=== PATIENT | male | born 1965 | race Caucasian/White ===

== ENCOUNTER 2017-11-13 06:56 | Day surgery (SDC) | payer BC ==
[2017-11-13] MEDS ORDERED: Sodium Chloride 0.9% 10 ML Syringe FLUSH PRN (08:30)
[2017-11-13] MEDS ORDERED: Lactated Ringers 1,000 ML IV SCH (08:30)
[2017-11-13] MEDS ORDERED: Propofol 200 MG/20 ML SDV IV ONE (08:45)
[2017-11-13] MEDS ORDERED: Midazolam 1 MG/ML 2 ML SDV IV ONE (08:45)
--- NOTE | 2017-11-13 09:21 | PCM.OPNOTE ---
- General Post-Op/Procedure Note Date of Surgery/Procedure: 11/13/17 Operative Procedure(s): c scope with bx Findings: ascending colon polyp sigmoid colon polyp sigmoid diverticulosis Pre Op Diagnosis: llq abd pain. occult blood in stool Post-Op Diagnosis: ascending colon polyp. sigmoid colon polyp. sigmoid diverticulosis Anesthesia Technique: MAC Primary Surgeon: Cirilo Leung Anesthesia Provider: Evelina Anderson Pathology: ascending colon polyp sigmoid colon polyp Complications: None Condition: Good Free Text/Narrative:: SEE DICTATION
--- NOTE | 2017-11-13 10:02 | OR ---
DATE OF OPERATION: 11/13/2017 SURGEON: Cirilo Leung MD PROCEDURES PERFORMED: Colonoscopy and cold forceps biopsy. PREOPERATIVE DIAGNOSES: History of left lower quadrant abdominal pain and occult blood in stools. POSTOPERATIVE DIAGNOSES: 1. Sigmoid diverticulosis. 2. Ascending colon polyp. 3. Sigmoid colon polyp. INDICATIONS FOR PROCEDURE: This is a 52-year-old white male who presents with the above-mentioned complaints. He was offered and accepted colonoscopy. DESCRIPTION OF PROCEDURE: After an excellent IV sedation was administered, digital rectal exam was performed. No marked abnormality was noted. The flexible colonoscope was inserted and advanced to the cecum without difficulty. The prep was excellent. The following findings were noted. On the ascending colon, there was a small mucosal abnormality of approximately 1 mm in size. This was biopsied with cold biopsy forceps and sent for permanent. Transverse colon was unremarkable. Descending colon was unremarkable. Sigmoid colon demonstrated some very mild scattered diverticula. In addition, at the distal sigmoid colon, there was a small pedunculated polyp, biopsied with the hot loop snare and sent for permanent. Rectum and anus were unremarkable. The colon was deflated as the scope was removed. The patient tolerated the procedure well and was taken to the recovery room in a good condition. /[id number] /MODL
== END 2017-11-13 10:20 | disposition home or self-care (01) ==
LOC: FB.SDS 06:56
PROVIDERS: ATTEND Surgery
DX: R10.32 Left lower quadrant pain (principal); R19.5 Other fecal abnormalities; D12.2 Benign neoplasm of ascending colon; D12.5 Benign neoplasm of sigmoid colon; K57.30 Diverticulosis of large intestine without perforation or abscess without bleeding; E78.5 Hyperlipidemia, unspecified; Z79.899 Other long term (current) drug therapy
CPT/HCPCS: 45380; 45385; 88305; J2250; J2704; J7120